=== PATIENT | male | born 1950 | race Caucasian/White ===

== ENCOUNTER 2019-05-26 13:07 | Inpatient (IN) | payer OTHER ==
[~2019-05-26] VITALS: Ht 175.3 cm; Wt 48.7 kg
[2019-05-26 13:08] VITALS: BP 119/77
--- NOTE | 2019-05-26 13:46 | NUR ---
PT UNABLE TO RECALL HIS ADDRESS, FAMILY MEMBER ESTEBAN'S NUMBER FROM PT CELL PHONE OBTAINED AND CALLED. ESTEBAN IS PT'S SON, HE REPORTS THAT PT HAS BEEN LOST IN HIS CAR X2 IN THE PAST. HE REPRTS PT HAS HAD DECLINING MENTAL FACILITIES. SON REPORT HE TALKED TO FATHER YESTERDAY AND HE DID NOT KNOW WHO THE SON WAS OR THAT HE EVEN HAD A SON. SON IS OUT OF TOWN AND WILL TRY TO CONTACT SOMEONE LOCAL TO SEE PT. ESTEBAN REPORTS THAT PT DOES NOT REMEMBER ANYBODY ANYMORE.
[2019-05-26 14:20] LABS: HEMOGLOBIN 13.8 gm/dL (14.0-18.0); MCHC 34.5 g/dL (28.0-37.0); MCV 92.9 fL (80.0-100.0); MPV 6.9 fl. (7.2-11.1); NUCLEATED RBCS 0 /100WBC; PLATELET COUNT* 286 thou/uL (150-400); RBC 4.31 mil/uL (4.50-6.00); RDW-CV 13.4 % (10.5-14.5); WBC 9.1 thou/uL (4.0-11.0)
[2019-05-26 14:32] LABS: ALBUMIN 3.6 g/dL (3.4-5.0); CREATININE 0.7 mg/dL (0.6-1.3); POTASSIUM 4.2 mmol/L (3.5-5.1); TOTAL BILIRUBIN 0.5 mg/dL (<0.1-1.0); TOTAL PROTEIN 6.2 g/dL (6.4-8.2)
[2019-05-26 15:03] LABS: ABSOLUTE LYMPHOCYTES 0.5 thou/uL (0.8-5.3); ABSOLUTE MONOCYTES 0.3 thou/uL (0.0-1.2); ABSOLUTE NEUTROPHILS 8.3 thou/uL (1.6-8.1); PLATELET ESTIMATE ADEQUATE
--- NOTE | 2019-05-26 15:29 | NUR ---
PT HAS EATEN 2 SANDWICHES AND HAD TO JUICES. PT AMBULATED TO RESTROOM WITH ASSISTANCE C/O LEFT HIP PAIN.
[2019-05-26 17:32] VITALS: BP 118/68
[2019-05-26 20:00] VITALS: BP 157/88
[2019-05-26 23:59] VITALS: BP 145/70
[2019-05-27 03:45] VITALS: BP 104/65
[2019-05-27 04:28] LABS: ABSOLUTE LYMPHOCYTES 0.6 thou/uL (0.8-5.3); ABSOLUTE MONOCYTES 0.8 thou/uL (0.0-1.2); ABSOLUTE NEUTROPHILS 5.9 thou/uL (1.6-8.1); BASOPHILS 0.3 %; EOSINOPHILS 0.3 %; HEMATOCRIT 38.8 % (42.0-52.0); HEMOGLOBIN 13.5 gm/dL (14.0-18.0); LYMPHOCYTES 8.2 %; MCH 32.3 pg (26.0-34.0); MCHC 34.8 g/dL (28.0-37.0); MONOCYTES 10.9 %; MPV 7.9 fl. (7.2-11.1); NUCLEATED RBCS 0 /100WBC; PLATELET COUNT* 290 thou/uL (150-400); POLYS 80.3 %; RBC 4.18 mil/uL (4.50-6.00); RDW-CV 13.2 % (10.5-14.5); WBC 7.3 thou/uL (4.0-11.0)
[2019-05-27 04:54] LABS: ALBUMIN 3.3 g/dL (3.4-5.0); CALCIUM 7.9 mg/dL (8.5-10.1); CREATININE 0.7 mg/dL (0.6-1.3); MAGNESIUM 2.1 mg/dL (1.8-2.4); POTASSIUM 4.4 mmol/L (3.5-5.1); TOTAL BILIRUBIN 0.5 mg/dL (<0.1-1.0); TOTAL PROTEIN 5.6 g/dL (6.4-8.2)
[2019-05-27 07:51] VITALS: BP 124/78
--- NOTE | 2019-05-27 10:45 | NUR ---
Nutrition: Pt admitted with AMS. Assesssed for low BMI.Wt: 118#. Regular diet ordered. Good appetite. Albumin 3.3. RD will order Ensure for added kcals. Consider Mild risk.
[2019-05-27 12:40] VITALS: BP 130/82
--- NOTE | 2019-05-27 15:46 | NUR ---
PT TRANSFERED TO MED/SURG AT 1500. PT A&OxSELF. NO IV, DR HARPER. PT SETTLED INTO ROOM. REPORT GIVEN TO SANDRA.
--- NOTE | 2019-05-27 16:35 | NUR ---
CM spoke with Pt's son via phone. Pt normally lives here in alone. Son lives in [place] and has attempted to try and get Pt to move to [place], but Pt has always declined. Per son, he has noticed a decline in Pt over the past 5 years, but states that this past year, Pt has gotten worse. Son spoke to Pt about a month ago and reports that Pt was A&O. When son spoke to Pt, the day before yesterday, Pt did not know who son was and son had to convince him who is was, at which point Pt stated "son, I probably should have moved to [place] with with." Son's mother and stepfather (Pt's 1st ex ), live in the area and plan to help locate dpoa paperwork. Per Pt's 2nd , she was Pt's dpoa until they got , then he changed it, 2nd believes it was changed to [place]/son. CM also encouraged son to contact the silverware buffer that Pt used for the divorce, to contact 2nd if necessary. Son states that Pt has had 5-6 episodes of confusion where son has been called that Pt was found in [place], [place], Pt had driven himself there. If DPOA paperwork cannot be located, may have to initiate guardianship, tho I am unsure if the courts are open at this time. Pt is normally independent. No DME. No hx of HH or SNF, per son, Pt has not been to a dr in over [address] Following Blank Short (1st ex ) [phone] and Steven Short (son's stepfather) [phone]
--- NOTE | 2019-05-27 18:11 | NUR ---
ASSUMED CARE OF PATIENT AT 1530 WHEN TRANSFERING FROM TELEMETRY UNIT. PATIENT SETTLED TO ROOM. PATIENT IS CONFUSED. PATIENT HAS BEEN UNCOOPERATIVE AND WANTING TO LEAVE. PATIENT HAS NOT BEEN REDIRECTABLE. SITTER ORDER OBTAINED FOR PATIENT SAFETY. PATIENT WILL NOT REMAIN IN BED OR CHAIR AND IS UNSTEADY ON FEET. PATIENT HAS GOOD APPETITE.
[2019-05-27 19:10] VITALS: BP 114/72
[2019-05-28 00:13] LABS: URINE BILIRUBIN NEGATIVE (Negative); URINE BLOOD NEGATIVE (Negative); URINE CLARITY CLEAR; URINE COLOR YELLOW; URINE GLUCOSE-RANDOM NEGATIVE (Negative); URINE KETONES NEGATIVE (Negative); URINE LEUKOCYTES-REFLEX NEGATIVE (Negative); URINE NITRITE-REFLEX NEGATIVE (Negative); URINE PROTEIN NEGATIVE (Negative); URINE SPECIFIC GRAVITY 1.015 (1.005-1.030)
[2019-05-28 00:16] LABS: AMP/METHAMP Negative (Negative); BARBITURATES Negative (Negative); BENZODIAZEPINES Negative (Negative); COCAINE Negative (Negative); METHADONE Negative (Negative); OPIATES Negative (Negative); PCP Negative (Negative); THC POSITIVE (Negative)
[2019-05-28 04:34] LABS: HEMATOCRIT 37.2 % (42.0-52.0); HEMOGLOBIN 12.9 gm/dL (14.0-18.0); MCH 32.4 pg (26.0-34.0); MCHC 34.8 g/dL (28.0-37.0); MCV 93.2 fL (80.0-100.0); RBC 3.99 mil/uL (4.50-6.00); RDW-CV 13.3 % (10.5-14.5); WBC 5.1 thou/uL (4.0-11.0)
[2019-05-28 05:02] LABS: ALBUMIN 2.9 g/dL (3.4-5.0); CALCIUM 7.9 mg/dL (8.5-10.1); CREATININE 0.6 mg/dL (0.6-1.3); PHOSPHORUS* 3.4 mg/dL (2.5-4.9); POTASSIUM 3.6 mmol/L (3.5-5.1)
--- NOTE | 2019-05-28 05:35 | NUR ---
PT ABLE TO VOICE HIS NAME. OTHERWISE DISORIENTED. CONFUSION. COMBATIVE. RUDE. AGGRESSIVE. PT HAD A SHOT OF HALDOL IM BEGINNING OF SHIFT. PT WAS COMBATIVE AND AGRRESSIVE SEVERAL TIME. UA COLLECTED. PT CHEWED MEDS LAST NIGHT. 1:[address] NO IV ACCESS AT THIS TIME. PT VOIDS IN THE BATHROOM, 2 PERSONS ASSIST. FALL PRECAUTION IN PLACE. CALL LIGHT WITHIN REACH. HOURLY ROUNDINGS MADE. WILL CONTINUE TO MONITOR.
[2019-05-28 08:00] VITALS: BP 115/71
--- NOTE | 2019-05-28 17:28 | NUR ---
PT AWAKE, ORIENTED TO PERSON. 1:1 SITTER AT BEDSIDE THIS SHIFT. FALL PRECAUTIONS IN PLACE. PT IMPULSIVE AND OCCASSIONALLY ATTEMPTS TO GET UP. PT REMAINS CONTINENT OF B/B. BRUISE TO L HIP PRESENT PRIOR TO THIS SHIFT. PT HAS NO IV ACCESS, BUT NONE INDICATED AT THIS TIME. PT ABLE TO TAKE MEDICATIONS WHOLE, NO DIFFICULTY. CASE MGMNT INVOLVED AND LOOKING FOR PLACEMENT FOR DC. PT ATE MEALS AND SNACKS, NO DIFFICULTY. APPETITE GOOD. PT DOES REQUIRE SOME ASSISTANCE WITH SET UP AT MEAL TIMES. PT RESTS IN BED WITH CALL LIGHT IN REACH. WILL CONTINUE TO MONITOR.
--- NOTE | 2019-05-28 19:40 | NUR ---
PT TRANSFERRED TO ROOM 210 BY BED ACCOMPANIED BY NURSING STAFF WITH BELONGINGS AND CHART. PT DENIES PAIN OR PROBLEMS AT THIS TIME. SITTER IN ROOM. PT CALM AND COOPERATIVE AT THIS TIME. BED ALARM ON FOR SAFETY, CALL LITE IN EASY REACH.
[2019-05-28 20:10] VITALS: BP 107/62
--- NOTE | 2019-05-29 05:48 | NUR ---
PT SLEPT ON AND OFF OVERNIGHT, SITTER AT BEDSIDE. PT AO TO SELF, BECOMES CONFUSED AND TRIES TO GET OOB, IMPULSIVE. PT CALMS EASILY AND REDIRECTS BACK TO BED PER SITTER REPORT. TAKES PILLS WHOLE WITH WATER WITHOUT DIFFICULTY. DENIES PAIN OR PROBLEMS. NO IV ACCESS. NO LABS THIS MORNING. VSS. NOT ON TELE MONITOR. UP WITH SBA TO BATHROOM TO VOID OVERNIGHT. CM ASSISTING WITH DC PLAN.
[2019-05-29 09:00] VITALS: BP 116/77
[2019-05-29 15:44] VITALS: BP 144/88
--- NOTE | 2019-05-29 17:14 | NUR ---
PATIENT IMPULSIVE AND VERBAL AT TIMES W/ STAFF. BED ALARM ON AND FUNCTIONING APPROP THRU SHIFT. PATIENT EATING WELL, FEEDING SELF. SEE MAR. CALL LIGHT IN REACH. CURRENTLY EATING SUPPER MEAL IN BED W/ TV ON. HRLY ROUNDS DONE. ~TJRN
[2019-05-29 20:00] VITALS: BP 109/71
[2019-05-30] VITALS: BP 124/69
[2019-05-30 04:17] LABS: CALCIUM 8.1 mg/dL (8.5-10.1); CREATININE 0.6 mg/dL (0.6-1.3); MAGNESIUM 2.1 mg/dL (1.8-2.4); POTASSIUM 3.9 mmol/L (3.5-5.1)
--- NOTE | 2019-05-30 06:01 | NUR ---
ASSUMED CARE OF PT AFTER REPORT AT 1930. PT IS CONFUSED, RESTLESS & IMPULSIVE. PT ON MEDSURG STATUS. PT UP WITH 1 ASSIST TO RESTROOM. PT DENIES ANY PAIN OR DISCOMFORT. PT WITH SITTER FOR SAFETY. PER SENIOR CENTER MANAGER, PT DID NOT SLEEP ALL NIGHT. KEEPS MUMBLING AND TRYING TO GET OUT OF BED TO GO HOME. FALL PRECAUTIONS IN PLACE.
--- NOTE | 2019-05-30 15:55 | NUR ---
SW called pt son to follow up on whether or not pt son was able to locate DPOA. Pt son said that he did not have any luck finding the document and that he would suspect beginning guardianship process will be necessary. SW attempted to contact court system (that is not open to public at this time, only through calls, emails, mail). SW had to leave a voicemail message and requested for someone to call SW back to discuss beginning guardianship process. SOPHIE called pt son again and asked if SW could have pt second phone number to call but pt son did not have the number at the moment but said that he had call her and that she did not have any paperwork or anything to do with pt after divorce and that the drafting instructor handled everything to which SW asked if pt son could find out auto vinyl top installer office/number etc to lead us to possibility that pt drafting instructor have the DPOA document available. Pt son did not know this information. SW to contact Risk and/or other sources to be able to determine next steps in working towards guardianship/dc planning.
[2019-05-30 16:21] VITALS: BP 124/71
--- NOTE | 2019-05-30 18:12 | NUR ---
REMAINS ALERT BUT DISORIENTED. RESPIRATIONS EVEN AND UNLABORED ON ROOM AIR. DENIES PAIN. 1:1 SITTER REMAINS AT BEDSIDE. NO MEDS GIVEN THIS SHIFT D/T DISPLAYED LETHARGY UPON ADMINISTRATION. BED ALARM SET ON EXITING MODE FOR SAFETY. CALL STOVER AND PERSONAL ITEMS WITHIN REACH. NSG WILL CONTINUE TO ASSESS.
[2019-05-30 20:00] VITALS: BP 117/75
[2019-05-31 04:12] VITALS: BP 128/84
--- NOTE | 2019-05-31 04:33 | NUR ---
ASSUMED PATIENT CARE AT 1900. ASSESSMENT COMPLETED CHARTED. PATIENT IS MED-SURG. HOURLY ROUNDING IN PLACE FOR PATIENT SAFETY. CLWR.
[2019-05-31 10:11] VITALS: BP 109/72
[2019-05-31 11:11] LABS: APTT 27.9 Seconds (25.0-31.3); INR 1.1; PROTIME 11.4 Seconds (9.20-11.50)
[2019-05-31 14:37] LABS: CSF CLARITY CLEAR; CSF COLOR COLORLESS; VOLUME 11.5 ml
[2019-05-31 14:50] LABS: CSF RBC 0 /mm3; CSF WBC 1 /mm3 (0-10)
[2019-05-31 15:01] LABS: CSF GLUCOSE 73 mg/dl (40-70); CSF PROTEIN 36.6 mg/dl (15-45)
--- NOTE | 2019-05-31 15:14 | NUR ---
SW discussed situation of possible guardianship needed with , Nitin, and confirmed with legal that as long as the son is okay with placement, this can be approval for pt to be able to dc to accepting facility even though there is not copy of DPOA in hand. SW faxed referral to [facility] who does have a male memory care bed available and are reviewing possibility of being able to accept pt.
[2019-05-31 16:07] VITALS: BP 105/65
--- NOTE | 2019-05-31 17:31 | NUR ---
PT A&Ox SELF. VITALS STABLE. IV PATENT. EATING 100% OF MEALS. SITTER IN PLACE FOR PT BEING IMPULSIVE. DENIED PAIN. UP 1-2. CALL LIGHT WITHIN REACH. WILL CONTINUE TO MONTIOR.
[2019-05-31 20:00] VITALS: BP 106/73
[2019-06-01] VITALS: BP 106/70
--- NOTE | 2019-06-01 05:01 | NUR ---
ASSUMED PT CARE AT APPROX 1930. PT IS AWAKE, ORIENTED TO SELF ONLY, AND IS IMPULSIVE AND TRIED TO GET OUT OF BED MULTIPLE TIMES. 1:[address] ASSESSMENT DONE AND CHARTED. NO ACUTE CHANGES OVERNIGHT. CALL LIGHT WITHIN REACH. HIGH FALL PRECAUTINS IN PLACE.
[2019-06-01 07:30] VITALS: BP 126/79
[2019-06-01] MEDS ORDERED: NAMENDA 10 MG T10 MG PO (08:44)
[2019-06-01] MEDS ORDERED: RISPERIDONE 1 MG1 MG PO (08:44)
[2019-06-01] MEDS ORDERED: ARICEPT10 M1 PO (08:44)
[2019-06-01] MEDS ORDERED: FOLIC ACID1 MG PO (08:44)
[2019-06-01] MEDS ORDERED: THERA M PLUS T1 EAC2 PO (08:44)
[2019-06-01 09:36] VITALS: BP 126/79
[2019-06-01 12:00] VITALS: BP 108/66
--- NOTE | 2019-06-01 16:34 | NUR ---
SOPHIE followed up with Tana in admissions at [facility] to discuss pt ready to dc and provided updated progress notes and faxed therapy notes once they were available. Araceli at [facility] explained that facility would need documentation that pt is sitter-free, possibly unable to provide risperdol for dementia...would need a different diagnosis that would qualify this pt needing this med, and if [employer] does not provide auth for SNF, dc to their LTC memory care unit will be pending son ability to find and provide copy of DPOA and all of needed documentation to begin medicaid pending application process. SOPHIE to continue to follow up with facility for placement. SOPHIE informed pt nurse and Dr Franco of barriers to discharge.
--- NOTE | 2019-06-01 16:38 | NUR ---
PATIENT 1:1 UNTIL 1300 AND THEN SITTER DC'D. PATIENT IMPULSIVE AT TIMES BUT DID NOT TRY TO GET OUT OF BED. BED ALARM REMAINS IN PLACE. IV SL. UP TO CHAIR FOR LUNCH. PT/OT WORKED WITH PATIENT TODAY. AWAITING PLACEMENT.
[2019-06-01 20:00] VITALS: BP 99/66
[2019-06-01 23:56] VITALS: BP 108/65
--- NOTE | 2019-06-02 04:14 | NUR ---
ASSUMED PT CARE AT APPROX 1930. PT IS AWAKE, ORIENTED TO SELF ONLY, CONFUSED AND IMPULSIVE, BUT IS EASILY REDIRECTABLE. ASSESSMENT DONE AND CHARTED. HIGH FALL PRECAUTIONS IN PLACE. CALL LIGHT WITHIN REACH. PT IS CLOSELY MONITORED.
[2019-06-02 08:00] VITALS: BP 123/83
--- NOTE | 2019-06-02 11:50 | NUR ---
SOPHIE received call from Tana in admissions at [facility] who informed that the facility wants pt to be off of sitter 1:1 for 2 to 3 days to determine how pt reacts. [facility] will still submit for auth from [employer] that may take a couple of days as well, but if not authorized, pt will need to have copy of DPOA in order for [facility] to accept LTC and they will need to begin process of applying for Medicaid. This will extend pt dc due to all of the requirements and documents, etc needed to apply for Medicaid. [facility] can also be involved to assist with process. SOPHIE discussed with dc senior program planner to fax more referrals to other facilities that have LTC memory care beds available to have back up options if [facility] ultimately unable to accept pt after all. SOPHIE/CM to continue to follow to assist with safe dc planning/placement.
--- NOTE | 2019-06-02 12:43 | NUR ---
FAXED REFERRALS TO [facility]. WILL CONFIRM IF THEY RECEIVED AND BED AVAILABILITY IN THEIR LONG TERM, MEMORY CARE AND SNF CARE FACILITY. WILL CONTINUE TO LOOK AT OTHER FACILITIES ALSO. [facility] [phone]; [phone] [facility] [phone]; [phone]
--- NOTE | 2019-06-02 14:41 | NUR ---
ASSUMED CARE OF PATIENT THIS AM AT 0730. PATIENT IS ALERT AND CONFUSED THIS AM. HE WAS UNABLE TO TELL STAFF HIS NAME AND BIRTHDATE. PATIENT IS UP WITH STANDBY ASSIST. HE CONTINUES TO GET UP IMPULSIVELY. HE HAS BEEN REMINDED TO NOT BE UP WITHOUT ASSISTANCE. BED AND CHAIR ALARM REMAIN ON AT ALL TIMES. PT OT AND SPEECH IN TO WORK WITH THE PATIENT TODAY. PATIENT IS EATING 100% OF MEALS. HE HAD TO BE FED BREAKFAST BUT WAS ABLE TO FEED HIMSELF LUNCH. PATIENT WAS ALSO ABLE TO RECITE HIS NAME THIS AFTERNOON. HE REMAINS UP IN THE CHAIR AT THIS TIME. WILL CONTINUE PLAN OF CARE.
[2019-06-02 15:52] VITALS: BP 128/81
--- NOTE | 2019-06-02 17:00 | NUR ---
FAXED REFERRAL JAYMIE/LIAISON FOR THE [facility]. CONFIRMED THAT SHE RECEIVED. SHE WILL CONTACT INP TOMORROW AFTER HER TEAM REVIEWS. CONFIRMED WITH SAM/CHASIDY AT [facility] THAT PATIENT DID NOT HAVE A SITTER IN THE PAST 24 HOURS. UPDATED CLINICALS, NURSING NOTES AND THERAPY NOTES FAXED. CALLED AND LEFT VOICE MAIL MESSAGES WITH JUANCHO/MALISSA AT [facility] AND NO RESPONSE YET. [facility] TO FOLLOW. [facility] [phone]; [phone] J[facility]MIE/LIAISON [facility] [phone]; [phone] SAM/ADMISSIONS [facility] [phone]; [phone] JUANCHO/INTAKE
[2019-06-02 20:00] VITALS: BP 102/57
[2019-06-03 04:00] VITALS: BP 128/83
--- NOTE | 2019-06-03 04:27 | NUR ---
ASSUMED PT CARE AT APPROX 1930. PT IS AWAKE, ORIENTED TO SELF.MOSTLY CONFUSED, SOMETIMES IMPULSIVE, BUT IS REDIRECTABLE. ASSESSMENT DONE AND CHARTED. HIGH FALL PRECAUTIONS IN PLACE. CALL LIGHT WITHIN REACH. PT IS CLOSELY MONITORED.
[2019-06-03 08:00] VITALS: BP 119/69
--- NOTE | 2019-06-03 16:02 | NUR ---
ASSUMED CARE OF PT APPROX 0730. REASSESSMENT COMPLETED CHARTED. MEDICATIONS GIVEN CHARTED. PT WORKED WITH THERAPY THIS AFTERNOON. PT SHOWERED WITH THERAPY. PT UP TO BEDSIDE CHAIR THIS AFTERNOON. PT IS IMPULSIVE AT TIMES, PT STATES THEY HAVE TO LEAVE AND GO HOME. PT REORIENTATED. PT ALERT TO SELF. SAFTEY PRECAUTIONS UTILIZED, HOURLY ROUNDING. CALL LIGHT WITHIN REACH.
--- NOTE | 2019-06-03 16:59 | NUR ---
SW received call from pt dtr in law Rachel [phone] to discuss issues in finding placement for pt. Pt dtr in law reiterated that pt son unable to find DPOA but that Rachel plans to call pt second exwife to try to determine criminal attorney who might have name of pt sports attorney who may or may not have a copy of the supposed DPOA document. Pt dtr in law and son are not positive that one exists even though they know that pt told them pt son was DPOA, pt never provided pt son with the DPOA paperwork. SW explained that pt is dependent on DPOA and on then DPOA assisting with applying for Medicaid. Pt dtr in law said that pt is retired from [employer] and has pension, 401k and might not qualify for Medicaid. Pt dtr in law unsure of pt finances/ability to pay for LTC up front and wouldn't have access to bank account, etc at this point to private pay for pt to LTC. Geographical barrier and barrier of inability to travel during covid19 outbreak is another consideration. SW revisiting need for guardianship after all and need to apply for emergency guardianship and called Risk dept for direction, also SW to call court system to see if they could assist in any way. Pt dtr in law suggested [facility] and said that the divorce proceedings took place in [place], [place] where if anything would be public record, could be a lead for determining if there really is a pt field advisor or anything that could assist in determining what else may help in the placement of pt. SOPHIE/ELIZABETH to continue to follow.
--- NOTE | 2019-06-03 17:10 | NUR ---
ASSUMES CARE OF PATIENT AT THIS TIME. REPORT RECEIVED FROM JOY.
[2019-06-03 20:00] VITALS: BP 134/85
[2019-06-03 23:57] VITALS: BP 129/84
[2019-06-04 08:00] VITALS: BP 127/85
[2019-06-04 16:26] VITALS: BP 115/90
--- NOTE | 2019-06-04 17:34 | NUR ---
PT IS OLNY ORIENTED TO SELF. STILL AWAITING PLACEMENT. PT DID HAVE EPISODE OF AGGRESSION. ORAL MEDICATIONS GIVEN. PT IS UNSTEADY AND IMPULSIVE. FALL ALARMS IN PLACE. VSS. WCTM CLOSELY.
[2019-06-04 20:00] VITALS: BP 135/80
--- NOTE | 2019-06-05 00:35 | NUR ---
ASSUMED CARE FROM DAY SHIFT PT SITTING IN CHAIR ATTEMTPING TO GET OUT , GAIT VERY UNSTEADY , AND PT BECOMING AGITATED. PT WAS ABLE TO TAKE PO MEDICATION WITH PUDDING. PT CONINTUE TO YELL OUT AND CLIMB OUT OF CHAIR . CALLED TO TAB. MEDICATION GIVEN. SELF WENT IN ROOM AND SIT TO KEEP PT CALM AND TO ASSIST WITH SATYING IN CHAIR AFTER REFUSING TO GO TO BED . MD CALLED FOR A SITTER DUE PT CLIMBING OUT OF CHAIR AND HIS IMPULSIVE BEHAVIOR. SITTER AT BEDSIDE BY [phone].
--- NOTE | 2019-06-05 03:37 | NUR ---
PT QUIET AND SLEEPING BED ALARM ON RESP EASY COLOR PINK , WILL CONITNUE WITH CURRENT PLAN OF CARE, AND WILL REPORT ABNORMAL FINDINGS OR CHANGES.
[2019-06-05 05:09] LABS: HEMATOCRIT 36.5 % (42.0-52.0); HEMOGLOBIN 12.5 gm/dL (14.0-18.0); MCH 31.9 pg (26.0-34.0); MCHC 34.3 g/dL (28.0-37.0); MPV 6.9 fl. (7.2-11.1); RBC 3.92 mil/uL (4.50-6.00); RDW-CV 13.3 % (10.5-14.5); WBC 5.3 thou/uL (4.0-11.0)
[2019-06-05 05:22] LABS: ALBUMIN 2.6 g/dL (3.4-5.0); CALCIUM 7.7 mg/dL (8.5-10.1); CREATININE 0.5 mg/dL (0.6-1.3); POTASSIUM 3.8 mmol/L (3.5-5.1); TOTAL BILIRUBIN 0.4 mg/dL (<0.1-1.0); TOTAL PROTEIN 5.5 g/dL (6.4-8.2)
[2019-06-05 08:00] VITALS: BP 107/68
--- NOTE | 2019-06-05 14:15 | NUR ---
ASSUMED PT CARE REPORT RECEIVED FROM NURSE PT IS ALERT AWAKE ORIENTED TO SELF ONLY. ON RA. CONFUSED AND DOES NOT MAKE SENSE IN HIS WORDS. SITTER 1:1 IN ROOM. PT LOOK CALM. AM MEDICINE GIVEN TO PATIENT. SITTER REMOVED AT 10:00 AM. BED ALARM ON. PT CAN FEED SELF. VSS. LEFT FOREARM IS PATENT. MEDSURG STATUS. CALL LIGHT AT REACH. WILL CONTINUE TO MONITOR PT
--- NOTE | 2019-06-05 14:59 | NUR ---
fall precaution in place. pt remains free of fall. bed alarm on,.
[2019-06-05 16:38] VITALS: BP 110/75
--- NOTE | 2019-06-05 17:14 | NUR ---
PT BECAME AGITATED AGAIN THIS AFTERNOON. SITTER 1:1 RESTARTED AT 1645. HALDOL GIVEN FOR AGITATION. WILL CONTINUE TO MONITOR
[2019-06-05 20:58] VITALS: BP 117/75
[2019-06-06 03:52] VITALS: BP 135/91
[2019-06-06 04:28] LABS: HEMATOCRIT 39.5 % (42.0-52.0); HEMOGLOBIN 13.3 gm/dL (14.0-18.0); MCH 31.1 pg (26.0-34.0); MCHC 33.6 g/dL (28.0-37.0); MCV 92.7 fL (80.0-100.0); MPV 6.7 fl. (7.2-11.1); RBC 4.26 mil/uL (4.50-6.00); RDW-CV 12.8 % (10.5-14.5); WBC 5.1 thou/uL (4.0-11.0)
[2019-06-06 05:04] LABS: CALCIUM 7.8 mg/dL (8.5-10.1); CREATININE 0.5 mg/dL (0.6-1.3); POTASSIUM 3.9 mmol/L (3.5-5.1)
--- NOTE | 2019-06-06 06:00 | NUR ---
PATIENT DID GET SOME SLEEP THIS SHIFT. HE IS IMPULSIVE AND WILL GET UP ON OWN. HE DID NOT SHOW ANY COMBATIVE BEHAVIOR JUST SOME VERBAL ABUSE TO STAFF ONCE. HE IS ABLE TO GET TO COMMODE WITH ASSISTANCE AND IS ALERT ENOUGH TO KNOW WHEN HE NEEDS TO USE THE RESTROOM. HE WAS ANXIOUS AND REMOVED HIS IV ATTEMPTED TO GET UP SEVERAL TIMES AND LEAVE. SITTER PRESENT. PLAN IS TO MOVE TO MEMORY CARE FACILITY. WILL CONTINUE TO MONITOR.
[2019-06-06 08:00] VITALS: BP 135/92
--- NOTE | 2019-06-06 13:08 | NUR ---
ASSUMED PT CARE REPORT RECEIVED FROM NURSE. PT IS ALERT AWAKE ORIENTED X1 TO SELF. ON RA. VSS. SITTER 1:1. TELEPSYCH ORDERED. TELEPSYCH EVALUATED PATIENT AT BEDSIDE. RECOMMENDATIN FAXED. WILL COMMUNICATE NEW RECOMMENDATIONS TO HOSPITALIST. PT FREE FROM FALL. AM MEDICINE ADMINISTERED. WILL CONTINUE TO MONITOR
--- NOTE | 2019-06-06 14:40 | NUR ---
Pt dc continues to be pending due to pt requiring sitter on and off over the weekend. Also, barrier to dc of the continued missing DPOA, SW contacted Nitin Thompson, and left a message to follow up again about the need for emergency guardianship since earlier on in the pt hospitalization, the word of stating pt son was DPOA was thought to suffice, now the possible facilities to accept pt are attesting that unless a document is actually present, they will not actually be able to accept pt or begin any financial discussion or a Medicaid application. SW/CM will update facilities and provide the Tele psych eval from today as needed. SW to continue to follow to assist with safe dc planning and placement shania.
[2019-06-06 16:00] VITALS: BP 103/66
--- NOTE | 2019-06-06 18:53 | NUR ---
psych recommendation placed in chart.
[2019-06-06 21:20] VITALS: BP 107/72
--- NOTE | 2019-06-07 04:16 | NUR ---
ASSUMED CARE OF PT 06/06/19 AT APPROX 1930, PT AWAKE, ALERT, ORIENTED TO SELF, 1:1 SITTER WITH PATIENT, VSS, PT ON ROOM AIR, FLUID RESTRICTION MAINTAINED. ASSESSMENTS AND HOURLY ROUNDINGS COMPLETED, WILL CONTINUE TO MONITOR.
[2019-06-07 08:00] VITALS: BP 116/75
[2019-06-07 12:02] VITALS: BP 108/63
--- NOTE | 2019-06-07 13:55 | NUR ---
SW spoke with legal instruments sales representative who will be assisting SW/CM with completing needed paperwork for guardianship process. If uncontested, could do guardianship by phone; if process is contested, then court dates are delayed until July at this point in time due to COVID 19 pandemic. Pt son may be able to be appointed guardian but will need a [place] resident to be registered agent who would not have liability but would be able to accept the papers on behalf of pt son if he were to "be served". SW to follow up with pt son to discuss if this could possibly be pt first exwife since apparently she lives in [place], [place]. Once guardianship established, should be a better chance for placement and SOPHIE will continue to follow to assist with safe dc planning.
--- NOTE | 2019-06-07 15:08 | NUR ---
REMAINS A&O TO SELF WITH CONFUSION. RESPIRATIONS EVEN AND UNLABORED ON ROOM AIR. DENIES PAIN. VSS. CONTINUES ON 2.5L FLUID RESTRICTION. 1:1 SITTER REMAINS AT BEDSIDE. NO IV D/T PT CONTINUES TO SELF REMOVE. UP TO CHAIR WITH ASSISTANCE. CHAIR/BED ALARM SET FOR SAFETY. CALL STOVER AND PERSONAL ITEMS WITHIN REACH. NSG WILL CONTINUE TO ASSESS.
[2019-06-07 20:00] VITALS: BP 157/75
--- NOTE | 2019-06-08 05:26 | NUR ---
PT SLEPT OFF AND ON OVERNIGHT, BECOMES IMPULSIVE AT TIMES GETTING OOB, CONFUSED-ALERT AND ORIENTED TO PERSON ONLY. UP WITH ASSIST TO BSC TO VOID OVERNIGHT. SITTER AT BEDSIDE PROVIDING SAFE TRANSFERS, ASSISTANCE AND REDIRECTION TO KEEP PT SAFE FROM FALLS/INJURY. NO IV ACCESS. VSS. CM FOLLOWING FOR DISCHARGE PLAN. NO LABS TODAY.
[2019-06-08 08:00] VITALS: BP 134/71
--- NOTE | 2019-06-08 09:55 | NUR ---
SW awaiting list of questions and forms to sign as well as present to pt son to sign to continue process of guardianship to move towards the dc goal of placement. SW emailed Araceli Waldron, the district attorney assisting with paperwork to check on status of paperwork. SW/CM to continue to follow to assist with safe dc planning.
--- NOTE | 2019-06-08 13:52 | NUR ---
ASSUMED CARE OF PT APPROX 0730. REASSESMENT COMPLETED CHARTED. MEDICATIONS GIVEN CHARTED. WALKER AND GAIT BELT USED THIS AM TO WALK PT ON UNIT. PT WAS INCREASINGLY AGITATED THIS AM, PRN MEDICATION GIVEN PER EMAR. PT IS LESS AGITATED THIS AFTERNOON. SAFTEY PRECAUTIONS UTILIZED, HOURLY ROUNDING. PT UP IN BEDSIDE CHAIR. SITTER IN ROOM WITH PT.
[2019-06-08 16:39] VITALS: BP 107/65
[2019-06-09 00:16] VITALS: BP 123/79
--- NOTE | 2019-06-09 05:58 | NUR ---
ASSESSMENT COMPLETED CHARTED, MEDICATIONS ADMINISTERED PER MAR. HOURLY ROUNDING COMPLETED FOR SAFETY. CONTINUE PLAN OF CARE. CALL LIGHT WITHIN REACH.
--- NOTE | 2019-06-09 07:10 | NUR ---
CHANGE OF SHIFT, BEDSIDE REPORT GIVEN PATIENT SEEN AT BEDSIDE, IN BED RESTING 1:1 AT BEDSIDE ASSUMED PATIENT CARE
[2019-06-09 08:00] VITALS: BP 110/72
[2019-06-09 09:52] LABS: ALBUMIN 2.9 g/dL (3.4-5.0); CREATININE 0.7 mg/dL (0.6-1.3); PHOSPHORUS* 3.9 mg/dL (2.5-4.9); POTASSIUM 3.2 mmol/L (3.5-5.1)
[2019-06-09 12:45] LABS: MAGNESIUM 2.4 mg/dL (1.8-2.4); PHOSPHORUS* 4.2 mg/dL (2.5-4.9)
--- NOTE | 2019-06-09 15:48 | NUR ---
SOPHIE received documents from Araceli Waldron. SOPHIE emailed proposed guardian the needed documents to complete and sign and will send back to Araceli upon completion. SW to follow up with pt son tomorrow to discuss progress on completing documents. SOPHIE discussed need for guardianship for dc plan even if questioning whether or not to attempt to send to a [facility] psych facility with Dr Tierney. SOPHIE also received not from Araceli Waldron that there will need to be a letter signed by a doctor explaining the need for guardianship, SW has an outline and will discuss with a doctor as needed. SOPHIE to continue to follow to assist with finalizing dc placement shania.
[2019-06-09 16:07] VITALS: BP 105/70
[2019-06-09 20:20] VITALS: BP 112/72
[2019-06-10] VITALS: BP 135/78
--- NOTE | 2019-06-10 05:45 | NUR ---
PATIENT WAS TRYING TO GET UP SEVERAL TIMES STILL VERY CONFUSED AND UNSTEADY ON FEET. SITTER AT BEDSIDE THROUGH NIGHT. WAITING ON PLACEMENT TO A MEMORY UNIT.
[2019-06-10 10:22] LABS: ALBUMIN 3.1 g/dL (3.4-5.0); CREATININE 0.7 mg/dL (0.6-1.3); PHOSPHORUS* 3.1 mg/dL (2.5-4.9); POTASSIUM 3.8 mmol/L (3.5-5.1)
[2019-06-10 12:00] VITALS: BP 151/80
--- NOTE | 2019-06-10 13:59 | NUR ---
FAXED REFERRAL TO [facility]. SPOKE WITH TAD/RN-INTAKE REGARDING PATIENT'S INSURANCE AND GUARDIANSHIP. FAXED TELEMED PSYCHIATRIC CONSULT NOTES TO DR. LISANDRO DALLAS/[employer] INSPECTOR OF [facility] AND TO TAD/RN-INTAKE. DR. DALLAS DENIED PLACEMENT AT THE [facility] UN[facility] AFTER REVIEWING PATIENT'S CHART AND TELEMED NOTES. CASE FORMULATION ON TELEMED NOTES STATING "PATIENT WILL NEED PLACEMENT IN A FDC AND DOES NOT NEED INPATIENT PSYCHIATRIC FACILITY." [employer] NOTIFIED RETAIL SALES CLERK. [facility] [phone]; [phone] TAD/RN-INTAKE
--- NOTE | 2019-06-10 14:41 | NUR ---
SOPHIE called and spoke with pt son Felton to follow up on documents needed from pt son and he confirmed that he received the documents and will try to complete and send back to SW as promptly as possible. SOPHIE spoke with Dr Carey about medical report for guardianship proceedings and attempted to email and then scan and send the outline for the letter needed, pending ability to be able to receive and complete. SW to continue to follow to assist with safe dc planning pending guardianship needs. SOPHIE also discussed with dc development planner to send other referrals as questioning [facility] psych option.
[2019-06-10 16:00] VITALS: BP 125/79
--- NOTE | 2019-06-10 16:57 | NUR ---
PT AWAKE/ALERT, VSS. ORIENTED TO PERSON. PT IS IMPULSIVE AT TIMES AND ATTEMPTS TO GET UP WITH OUT CALLING FOR ASSISTANCE. PT REMAINS ON 2L FLUID RESTRICTION. NO IV ACCESS AT THIS TIME, PROVIDER AWARE. PO POTASSIUM ADMINISTERED PER ELECTROLYTE PROTOCOL FOR K+ 3.2. CASE MANAGEMENT CONTINUES TO WORK ON DC PLAN. IM HALDOL ADMINISTERED THID AFTERNOON ORDERED. PT AMBULATED WITH THERAPY WITH USE OF GAIT BELT AND WALKER. PT NOW RESTS IN BED WITH ALL LIGHT IN REACH. PT REMAINS IN DIRECT VIEW OF STAFF. FALL PRECAUTIONS IN PLACE. WILL CONTINUE TO MONITOR.
[2019-06-11 05:00] VITALS: BP 119/77
--- NOTE | 2019-06-11 05:45 | NUR ---
SLEPT ALL SHIFT. DID GET UP 0530 BED CHANGED, HAD A BM. FLUID RESTRICTION UPHELD. PLAN IS TO D/C TO A MEMORY CARE UNIT ONCE AVAILABLE. WILL CONTINUE TO MONITOR.
[2019-06-11 07:45] VITALS: BP 114/67
[2019-06-11 10:58] LABS: CALCIUM 8.1 mg/dL (8.5-10.1); CREATININE 0.7 mg/dL (0.6-1.3); POTASSIUM 3.9 mmol/L (3.5-5.1)
--- NOTE | 2019-06-11 13:01 | NUR ---
REMAINS ALERT AND ORIENTED TO SELF. RESPIRATIONS EVEN AND UNLABORED ON ROOM AIR. DENIES PAIN. NO IV WITH MD ORDER TO LEAVE OUT. 1:1 SITTER REMAINS AT BEDSIDE. UP WITH WALKER. STEADY GAIT NOTED. TOLERATING REGULAR FOOD WITH GOOD APPETITE. BED AND CHAIR ALARMS SET FOR SAFETY. NSG WILL CONTINUE TO ASSESS.
[2019-06-11 20:35] VITALS: BP 101/72
--- NOTE | 2019-06-12 04:24 | NUR ---
ASSUMED CARE OF PT 06/11/19 AT APPROX 1930. PT AWAKE, ALERT, ORIENTED TO SELF, PT ON ROOM AIR, FLUID RESTRICTION MAINTAINED, VSS. PT HAD NO COMPLAINTS THIS SHIFT. ASSESSMENTS AND HOURLY ROUNDINGS COMPLETED. WILL CONTINUE TO MONITOR.
[2019-06-12 08:00] VITALS: BP 126/84
[2019-06-12 15:50] VITALS: BP 135/80
[2019-06-12 20:00] VITALS: BP 119/86
--- NOTE | 2019-06-13 06:15 | NUR ---
Pt was very agitated at shift change. Haldol was given x1 without relief of symptoms. Pt continued to become progressively more aggressive and attempted twice to hit staff. Dr. Ortiz was paged and haldol timeframe was adjusted and ativan was ordered. Haldol x1 was administered a second time. Relief of symptoms was achieved with second dose. Pt has rested comfortably from that time on with only mild, intermittent agitation. Pt is aox1, M/S status, respirations are even and unlabored on room air.
[2019-06-13 07:12] LABS: HEMATOCRIT 36.9 % (42.0-52.0); HEMOGLOBIN 12.7 gm/dL (14.0-18.0); MCHC 34.4 g/dL (28.0-37.0); MCV 93.1 fL (80.0-100.0); MPV 6.8 fl. (7.2-11.1); RBC 3.97 mil/uL (4.50-6.00); RDW-CV 12.6 % (10.5-14.5); WBC 4.3 thou/uL (4.0-11.0)
[2019-06-13 07:30] VITALS: BP 108/58
[2019-06-13 07:40] LABS: ALBUMIN 2.8 g/dL (3.4-5.0); CALCIUM 7.9 mg/dL (8.5-10.1); CREATININE 0.7 mg/dL (0.6-1.3); MAGNESIUM 2.1 mg/dL (1.8-2.4); POTASSIUM 3.9 mmol/L (3.5-5.1); TOTAL BILIRUBIN 0.3 mg/dL (<0.1-1.0); TOTAL PROTEIN 5.6 g/dL (6.4-8.2)
[2019-06-13 10:13] LABS: BE 4.2 mmol/L (-2 to +3); PCO2 40.2 mmHg (35.0-45.0); pH 7.465 (7.340-7.450)
[2019-06-13 10:14] LABS: PO2 130.2 mmHg (75.0-100.0)
[2019-06-13 16:00] VITALS: BP 108/68
--- NOTE | 2019-06-13 16:34 | NUR ---
SW received response from pt son and received needed signed paperwork from pt son. SOPHIE met with Dr Carey who signed Medical report/letter. SOPHIE sent the above documents to Araceli Waldron and SW will follow up to ensure guardianship now able to be in progress with the court system now that the needed documents are complete. SOPHIE discussed with dc digital media planner to provide updates to facilities for placement. Pt need for sitter continues to be a barrier to discharge and the pending guardianship. SW to continue to follow to assist with safe dc planning and placement as needed.
--- NOTE | 2019-06-13 17:05 | NUR ---
REMAINS SEDATED BUT ALERT AND ORIENTED WHEN PROMPTED. RESPIRATIONS EVEN AND UNLABORED ON O2 AT 2L VIA NASAL CANNULA. NO EPISODES OF APNEA REPORTED OR NOTED. DENIES PAIN. VSS. NO S/SX OF AGRESSIVE/COMBATIVE BEHAVIOR. UPDATED PSYCH MD AND REQUESTED TO SPEAK WITH DR MONTES. DR MONTES'S CELL PHONE PROVIDED. 1:1 SITTER REMAINS AT BEDSIDE. INCONTINENT OF BLADDER THIS SHIFT. CALL STOVER AND PERSONAL ITEMS WITHIN REACH. NSG WILL CONTINUE TO ASSESS.
--- NOTE | 2019-06-14 04:57 | NUR ---
PATIENT HAS SLEPT OFF AND ON DURING THE NIGHT. VSS ON RA. SITTER IN ROOM DURING THE NIGHT. MEDICATIONS GIVEN ORDERED AND CHARTED. PATIENT UP WITH SBA TO THE BATHROOM. HOURLY ROUNDS MADE. WILL CONTINUE WITH PLAN OF CARE AND NURSING TO MONITOR.
[2019-06-14 08:10] VITALS: BP 110/64
--- NOTE | 2019-06-14 10:51 | NUR ---
SOPHIE received, reviewed and signed the petition for appointemnt of guardian and conservator and returned to embedded linux developer Araceli Waldron. Awaiting Stranding Supervisor/court approval/decision and then will be able to provide confirmed guardianship information to potential placement facilities as needed. SOPHIE received information that Dr Carey spoke with psychiatrist at [facility] who provided further medication suggestions and explained pt not accepted to [facility] facility due to insurance limitations and would continue to recommend LTC placement. After guardianship received and pt is sitter free, placement options more likely and SOPHIE/ELIZABETH will continue to follow to assist with safe dc planning/placement as soon as can be arranged.
[2019-06-14 16:00] VITALS: BP 132/72
--- NOTE | 2019-06-14 17:58 | NUR ---
PT AWAKE/ALERT/CONFUSED. 1:1 REMAINS WITH PT DIRECTED. PT UP SBA W/WALKER AND GAIT BELT. PT HAS NO IV ACCESS, PHYSICIAN AWARE. PT INCONTINENT OF B/B AT TIMES. PT CONTINUES TO BE ON 2,000 ML FLUID RESTRICTION. PT RESTS IN ROOM WITH CALL LIGHT IN REACH. WILL CONTINUE TO MONITOR.
[2019-06-14 20:42] VITALS: BP 147/51
--- NOTE | 2019-06-15 06:03 | NUR ---
SITTER AT BEDSIDE. GETS ANXIOUS AND IMPULSIVE AT TIMES. USUALLY TO NEED THE RESTROOM. WAS ASLEEP MOST OF SHIFT. WILL CONTINUE TO MONITOR
[2019-06-15 07:15] VITALS: BP 147/87
--- NOTE | 2019-06-15 10:21 | NUR ---
SW received message from tax associate attorney that the petition for guardianship and conservator has been filed with the dressage judge and that she requested emergency hearing. SW to be updated by tax associate attorney with the dressage judge's response. When guardianship and conservator is finalized and in place, SW will update possible referrals and send more referrals to facilities for placement and will update pt son Felton (who is proposed guardian) as well in the placement process.
--- NOTE | 2019-06-15 16:56 | NUR ---
PT REMAINED ALERT TO SELF. PT UP WALKING IN HALLS WITH ASSISTANCE. SITTER IN ROOM. PT SLEPT MOST OF SHIFT. PT UP TO CHAIR FOR LUNCH. I&O'S RECORDED. TELEPSYCH CONSULT MADE. FALL RISK PRECAUTIONS IN PLACE. HOURLY ROUNDING COMPLETED. WILL CONTINUE TO MONITOR.
--- NOTE | 2019-06-15 18:55 | NUR ---
TELE PSYCH CONSULT COMPLETED. NO INFORMATION FAXED OVER REGARDING PATIENT AT THIS TIME. WILL NOTIFY NIGHT NURSE.
[2019-06-16 04:00] VITALS: BP 117/74
[2019-06-16 04:10] LABS: HEMATOCRIT 35.8 % (42.0-52.0); HEMOGLOBIN 12.3 gm/dL (14.0-18.0); MCH 32.1 pg (26.0-34.0); MCHC 34.4 g/dL (28.0-37.0); MCV 93.3 fL (80.0-100.0); MPV 7.1 fl. (7.2-11.1); RBC 3.83 mil/uL (4.50-6.00); RDW-CV 12.7 % (10.5-14.5); WBC 6.9 thou/uL (4.0-11.0)
[2019-06-16 04:23] LABS: ALBUMIN 2.6 g/dL (3.4-5.0); CALCIUM 7.9 mg/dL (8.5-10.1); CREATININE 0.5 mg/dL (0.6-1.3); MAGNESIUM 2.2 mg/dL (1.8-2.4); POTASSIUM 3.7 mmol/L (3.5-5.1); TOTAL BILIRUBIN 0.4 mg/dL (<0.1-1.0); TOTAL PROTEIN 5.4 g/dL (6.4-8.2)
--- NOTE | 2019-06-16 04:29 | NUR ---
PT SLEPT WELL OVERNIGHT, INCONTINENT URINE. IMPULSIVE AT TIMES WHEN HE NEEDS TO URINATE IT SEEMS. TAKES PILLS CRUSHED IN PUDDING. NO IV ACCESS. CM FOLLOWING FOR DC PLAN. AM LABS DRAWN. SITTER PRESENT.
[2019-06-16 08:00] VITALS: BP 143/89
--- NOTE | 2019-06-16 10:11 | NUR ---
SOPHIE received call from Araceli Waldron, junior net developer, informing that the pt has been appointed an junior net developer Jack Wooten by the courts to visit pt to be schedule to visit pt on Thursday. Then another person to serve pt as well and they are both to call SOPHIE to arrange exact times. Then all involved parties will have court proceeding through laptop with camera and video link like Zoom in lieu of an in person court proceeding that would normally take place (but cannot with the current COVID pandemic and mandate for no public hearings at this time).
--- NOTE | 2019-06-16 10:47 | NUR ---
ASSUMED PT CARE AT 0800, AOX TO SELF. O2 SAT 90'S RA. PT DENIES PAIN. PT HAS A SITTER. HAS BM TODAY. VSS, AM ASSESSMENT CHARTED, MEDS GIVEN PER MAR, CALL LIGHT WITHIN REACH, WILL CONTINUE TO MONITOR.
[2019-06-16 16:00] VITALS: BP 120/89
[2019-06-16 19:45] VITALS: BP 125/78
[2019-06-17] VITALS: BP 120/83
--- NOTE | 2019-06-17 04:03 | NUR ---
PT RESTLESS MOST OF SHIFT PT STARTED THROWING URINAL AND KLEENEX BOX ON THE FLOOR ATTEMPTING TO CLIMB OUT OF BED.HALDOL GIVEN FOR AGITATEION SITTER REMAIN AT BEDSIDE. WILL CONTINUE TO MONTIOR FOR SAFETY AND PLAN OF CARE.
[2019-06-17 07:30] VITALS: BP 114/73
--- NOTE | 2019-06-17 10:12 | NUR ---
SW received call from court system here to be able to serve papers to pt in preparation for court proceeding regarding guardianship that is scheduled for Thursday at 9:30 am. SW to continue to follow to participate in the court hearing via computer and will continue to assist with safe dc planning/placement.
[2019-06-17 16:00] VITALS: BP 128/88
--- NOTE | 2019-06-17 18:45 | NUR ---
ASSUMED PT CARE AT 0800, AOX TO SELF, CONFUSED. HAS A SITTER. AM ASSESSMENT CHARTED, MEDS GIVEN PER, MAR, CALL LIGHT WITHIN REACH, WILL CONTINUE TO MONITOR.
[2019-06-17 20:00] VITALS: BP 105/66
[2019-06-18] VITALS: BP 122/91
--- NOTE | 2019-06-18 06:11 | NUR ---
PATIENT SLEPT MOST OF THE NIGHT. PATIENT HAD SITTER BEGINNING OF SHIFT THEN WENT TO SLEEP AND SITTER WAS ABLE TO BE PULLED OUT OF THERE. BED ALARM REMAINS ON FOR PATIENT SAFETY. WILL CONTINUE TO MONITOR.
[2019-06-18 08:00] VITALS: BP 116/77
--- NOTE | 2019-06-18 11:16 | NUR ---
ASSUMED PT CARE AT 0730, PT WAS STANDING BY SIDE OF BED, REDIRECTED HIM TO BED AND INITIATED FALL PRECAUTIONS. PT IS ALERT AND ONLY ORIENTED TO SELF. PT GOAL IS TO MAINTAIN SAFETY, REMAIN FREE OF FALLS AND AWAIT PLACEMENT. AM ASSESSMENT CHARTED, MEDS PER MAR, FALL PRECAUTIONS IN PLACE, WILL CONTINUE POC.
[2019-06-18 16:00] VITALS: BP 134/87
--- NOTE | 2019-06-18 17:15 | NUR ---
NO ACUTE CHANGES THROUGHOUT SHIFT, PT WORKED W/ PT TODAY AND AMBULATED IN ROOM. PT IS INCONTINENT OF BOWEL AND BLADDER AND IMPULSIVE AT TIMES BUT REMAINED FREE FROM FALLS. GUARDIANSHIP PROCESS UNDERWAY, FALL PRECAUTIONS IN PLACE, WILL CONTINUE POC.
[2019-06-19 05:15] LABS: ALBUMIN 2.7 g/dL (3.4-5.0); CALCIUM 7.7 mg/dL (8.5-10.1); CREATININE 0.5 mg/dL (0.6-1.3); PHOSPHORUS* 3.5 mg/dL (2.5-4.9); POTASSIUM 3.3 mmol/L (3.5-5.1)
--- NOTE | 2019-06-19 06:27 | NUR ---
PATIENT PART OF THE NIGHT. PATIENT REMAINS VERY IMPULSIVE AT TIMES. BED ALARM REMAINS ON FOR PATIENT SAFETY. WILL CONTINUE TO MONITOR.
[2019-06-19 07:45] VITALS: BP 128/82
--- NOTE | 2019-06-19 11:00 | NUR ---
ASSUMED PT CARE AT 0730, PT RESTING IN BED, A&OX0, SATTING 97% ON RA AND DIDN'T VOICE ANY C/O PAIN OR SHORTNESS OF BREATH. PT GOAL IS TO MAINTAIN SAFETY, REMAIN FREE FROM FALLS AND REPLACE K+ PER E'LYTE PROTOCOL SINCE K+ WAS 3.3 THIS AM. AM ASSESSMENT CHARTED, MEDS PER APR, FALL PRECAUTIONS IN PLACE, WILL CONTINUE POC.
[2019-06-19 16:00] VITALS: BP 144/82
--- NOTE | 2019-06-19 18:09 | NUR ---
NO ACUTE CHANGES THROUGHOUT SHIFT. PT WAS GIVEN 2 DOSES OF K+ TODAY PER E'LYTE PROTOCOL AND PT REMAINED FREE FROM FALLS THROUGHOUT SHIFT. PT CONTINUED TO BE INCONTINENT OF BOWEL AND BLADDER TODAY, HAD NO C/O PAIN OR SHORTNESS OF BREATH, MEDS GIVEN PER APR, WILL CONTINUE POC.
[2019-06-19 20:00] VITALS: BP 107/71
[2019-06-20] VITALS: BP 120/75
[2019-06-20 04:00] VITALS: BP 107/73
[2019-06-20 05:25] LABS: ALBUMIN 2.6 g/dL (3.4-5.0); CALCIUM 8.3 mg/dL (8.5-10.1); CREATININE 0.7 mg/dL (0.6-1.3); MAGNESIUM 2.3 mg/dL (1.8-2.4); PHOSPHORUS* 3.8 mg/dL (2.5-4.9); POTASSIUM 4.1 mmol/L (3.5-5.1)
--- NOTE | 2019-06-20 05:59 | NUR ---
PATIENT SLEPT MOST OF THE NIGHT. PATIENT REMAINS INCONTINENT. PATIENT WAS GRABBING AT THIN AIR BEGINNING OF THE SHIFT. MEDS WERE GIVEN ORDERED. WILL CONTINUE TO MONITOR.
[2019-06-20 08:00] VITALS: BP 105/70
--- NOTE | 2019-06-20 13:45 | NUR ---
Pt dc pending guardianship and pending placement. Court hearing tomorrow at 9:30 am to proceed with guardianship process. SW discussed with dc management planner to fax updated info to possible facilities and to more facilities for placement. SW to continue to follow to assist with safe dc planning.
[2019-06-20 15:49] VITALS: BP 116/68
--- NOTE | 2019-06-20 17:40 | NUR ---
ASSUMED PT CARE AT 0800, AOX TO SELF, CONFUSED. IMPULSIVE. UP SBA WITH WALKER. VSS, AM ASSESSMENT CHARTED. GOOD PO INTAKE NOTED. HOURLY ROUNDING, CLOSELY MONITOR.
[2019-06-20 19:50] VITALS: BP 109/74
[2019-06-21] VITALS: BP 122/78
--- NOTE | 2019-06-21 06:35 | NUR ---
PT CONFUSED. FORGETFUL. PT GOT NO SLEEP LAST NIGHT. HALDOL AND ATIVAN GIVEN PER EMAR. SCHLD MEDS GIVEN PER EMAR. NO IV ACCESS. SEVERAL ATTEMPTS MADE TO GET OUT OF BED. FALL PRECAUTION IN PLACE. CALL LIGHT WITHIN REACH. HOURLY ROUNDINGS MADE. WILL CONTINUE TO MONITOR.
[2019-06-21 08:00] VITALS: BP 133/78
--- NOTE | 2019-06-21 14:45 | NUR ---
pt is confused requires reorientation prior shift stated he hasn't slept in 2 days. pt worked with pt this promotion writer and pt got him up to chair ambulated throughout room changed room and sheets pt is now resting in bed
--- NOTE | 2019-06-21 15:28 | NUR ---
Court proceeding via video conference in regards to guardianship held this morning. Craft Worker granted guardianship to pt son Felton for pt care and to be able to discover information about pt finances but not full conservatorship at this time since the finances are unknown. Once SOPHIE receives documents stating the guardianship, SOPHIE and dc materials planner to fax updated information with guardianship to potential facilities for placement.
[2019-06-21 16:00] VITALS: BP 111/72
[2019-06-21 21:45] VITALS: BP 102/72
[2019-06-21 23:58] VITALS: BP 104/69
--- NOTE | 2019-06-22 04:20 | NUR ---
ASSUMED CARE OF PT 06/21/19 AT APPROX 1930. PT ORIENTED TO SELF, VSS, PT SLEEPING - WOKE FOR EVENING MEDS AND THEN BACK TO SLEEP, FLUID RESTRICTION MAINTAINED, ASSESSMENTS AND HOURLY ROUNDINGS COMPLETE. WILL CONTINUE TO MONITOR.
[2019-06-22 07:55] VITALS: BP 106/65
--- NOTE | 2019-06-22 08:48 | NUR ---
FAXED REFERRALS TO [facility] AND [facility]. WILL CONFIRM THEY RECEIVED AND FOLLOW UP REGARDING PLACEMENT AND FINANCIAL SITUATION. DCP TO FAX REFERRALS TO [facility] AND [facility] PENDING DECISIONS ON THE ABOVE FACILITIES. [facility] [place] [phone]; [phone] [facility] - [facility]/ADMISSIONS [phone]; [phone]; MAIN [phone]
[2019-06-22 12:00] VITALS: BP 119/74
--- NOTE | 2019-06-22 16:49 | NUR ---
PT A&OxSELF. NO SITTER. NO IV, DR HARPER. PT WAS NOT ANXIOUS DURING SHIFT. UP WITH 1 STAND BY ASSIST. EATING 90-100% OF MEALS. WAITING PLACEMENT. WORKED WITH OT TODAY. FALL PRECAUTIONS IN PLACE. CALL LIGHT WITHIN REACH. WILL CONTINUE TO MONITOR.
[2019-06-22 19:25] VITALS: BP 99/70
[2019-06-23] VITALS: BP 114/75
--- NOTE | 2019-06-23 04:04 | NUR ---
ASSUMED CARE OF PT 06/22/19 AT APPROX 1930. PT AWAKE, ALERT, ORIENTED TO SELF, PT ON ROOM AIR, VSS, FLUID RESTRICTIONS MAINTAINED, ASSESSMENTS AND HOURLY ROUNDINGS COMPLETE. WILL CONTINUE TO MONITOR.
[2019-06-23 07:47] VITALS: BP 157/92
--- NOTE | 2019-06-23 16:14 | NUR ---
SOPHIE called and spoke with Tana in admissions at [facility] who said that they are still reviewing new information provided and determining if they can accept pt on SNF because now they no longer have a memory care unit bed available. SW to send other referrals and barrier to dc now is that facilities are not willing to accept without assurance of a payer source; pt is not Medicaid pending because belief is that pt has finances but unable to use finances yet to pay for intermodal truck driver care because courts have not granted use of pt money yet. Pt son to find out pt finances and to work with potential facilities' business office to assist with placement acceptance. SW And dc community planner to continue to assist with safe dc planning/placement shania.
[2019-06-23 16:39] VITALS: BP 109/68
--- NOTE | 2019-06-23 17:09 | NUR ---
PT A&OxSELF. PT HAS REFUSED TO EAT TODAY. DID DRINK FLUIDS. HUNCHED OVER IN A SITTING POSITION MOST OF SHIFT. REFUSES TO SIT UP IN BED. WILL MOVE UPON HIS CHOOSING. REFUSED TO TAKE MEDICATIONS. FALL PRECAUTIONS IN PLACE. CALL LIGHT WITHIN REACH. WILL CONTINUE TO MONITOR.
[2019-06-23 20:00] VITALS: BP 114/76
[2019-06-24] VITALS: BP 125/73
--- NOTE | 2019-06-24 05:57 | NUR ---
PATIENT SLEPT MOST OF THE NIGHT. NIGHT MEDS WERE HELD THIS SHIFT DUE TO PATIENT JUST STARING OFF IN SPACE AND NOT REALLY FOLLOWING DIRECTIONS DID NOT WANT PATIENT TO ASPIRATE. PATIENT WAS CLEANED UP NEEDED. BED ALARM REMAINS ON FOR PATIENT SAFETY. WILL CONTINUE TO MONITOR.
[2019-06-24 07:30] VITALS: BP 94/58
--- NOTE | 2019-06-24 12:11 | NUR ---
SW called pt son and dtr in law and discussed placement barriers and discussed need for their assistance in working with possible placement business offices about payment plans. Pt dtr in law provided information about [facility] in [place] and that they would need to do a medical transport for pt when there is accepting facility available. SW encouraged pt son to drive to now to discover pt finances that may assist in securing a placement although pt son would still need to pay up front which they are not able to do according to pt son and dtr in law. SOPHIE spoke with Katy with [facility] who said that they agree to accept pt at [facility] but need payment up front. SW to continue to follow to attempt to find facility willing to accept without payment but this is the dc barrier.
[2019-06-24 16:00] VITALS: BP 91/66
--- NOTE | 2019-06-24 16:20 | NUR ---
ASSUMED CARE OF PATIENT AT APPROX 0730. PATIENT IS ALERT BUT NOT ORIENTED TO PERSON, PLACE OR TIME. ASSESSMENT COMPLETED AND CHARTED. VSS ON ROOM AIR. NO COMPLAINTS VOICED THIS SHIFT. PATIENT HAS FLAT AFFECT AND HAS TROUBLE FOLLOWING COMMANDS APPROPRIATELY. MED SURG STATUS. FALL PRECAUTIONS ARE IN PLACE. CALL LIGHT IS WITHIN REACH. HOURLY ROUNDS MADE. WILL CONTINUE WITH PLAN OF CARE.
--- NOTE | 2019-06-24 16:28 | NUR ---
SOPHIE COREAS INFORMED CM GENDER STUDIES PROFESSOR THAT PATIENT'S SON (ESTEBAN) IS REQUESTING A CALL FROM [facility]. VÍCTOR SPOKE TO SON PER REQUEST. VÍCTOR STATED THAT SON IS POTENTIALLY WANTING TO MOVE THE PATIENT DOWN TO A FACILITY IN [place] WHERE THE SON LIVES. THE FACILITY IS REQUESTING A LIST OF MEDICATIONS AND NOTES FROM PT/OT ABOUT WHAT THE PATIENT CAN AND CANNOT DO. INFORMED VÍCTOR THAT CM WILL FOLLOW UP WITH PATIENT TO OBTAIN FACILITY NAME AND FAX NUMBER IN ORDER TO TO PLACE THE APPROPRIATE REFERRAL AND SEND CLINICALS. SOPHIE TO CONTINUE TO FOLLOW DISCHARGE PLANNING NEEDS.
[2019-06-24 20:52] VITALS: BP 95/70
--- NOTE | 2019-06-25 05:33 | NUR ---
SLEPT THROUGH SHIFT. INCONTINENT OF URINE. ALERT TO SELF ONLY, CONFUSED, FORGETFUL. RECEIVED ALL MEDS SCHEDULED. WILL CONTINUE TO MONITOR.
[2019-06-25 07:40] VITALS: BP 101/68
--- NOTE | 2019-06-25 12:36 | NUR ---
Nutrition: Calorie count ordered for 3 days. It is hung on pt's door. RD will assess calorie count 06/28/19.
[2019-06-25 16:00] VITALS: BP 139/79
--- NOTE | 2019-06-25 16:38 | NUR ---
PATIENT TURNED Q2. PATIENT NOTED TO HAVE PRESSURE SORE TO COCCYX, PHOTO OBTAINED PER PROTOCOL AND WOUND CONSULT PLACED. PATIENT REMAINS CONFUSED, ONLY ALERT TO NAME. PATIENT ABLE TO FOLLOW SOME COMMANDS, PATIENT GIVEN PILLS CRUSHED IN APPLESAUCE AND WAS FED MEALS. CALORIE COUNT STARTED TODAY PER DR. HENNESSY ORDERS. PATIENTS LEFT EYE NOTED TO BE RED AND DRAINING, DR. MONTES NOTIFIED AND AWAITING ANY NEW ORDERS. PATIENT REMAINS MS STATUS.
[2019-06-25 20:25] VITALS: BP 132/78
[2019-06-25 23:50] VITALS: BP 96/62
[2019-06-26 01:12] LABS: INFLUENZA A ANTIGEN Negative (Negative); INFLUENZA B ANTIGEN Negative (Negative)
[2019-06-26 04:42] LABS: URINE BILIRUBIN NEGATIVE (Negative); URINE BLOOD NEGATIVE (Negative); URINE CLARITY CLEAR; URINE COLOR YELLOW; URINE GLUCOSE-RANDOM NEGATIVE (Negative); URINE KETONES NEGATIVE (Negative); URINE LEUKOCYTES-REFLEX NEGATIVE (Negative); URINE NITRITE-REFLEX NEGATIVE (Negative); URINE PROTEIN TRACE (Negative); URINE SPECIFIC GRAVITY 1.025 (1.005-1.030); URINE UROBILINOGEN 0.2 E.U./dl (0.2-1.0)
--- NOTE | 2019-06-26 04:44 | NUR ---
DEVELOPED FEVER OVERNIGHT 101.9 GAVE TYLENOL. BP WAS 96/62 AND NO URINE OUTPUT. BLADDER SCAN SHOWS >[address] HUSSEIN FOR ORDERS FOR LAB WORK, U/A, FLU SWAB. PATIENT LETHARGIC AND NOT RESPONDING TO QUESTIONS. AWAITING LAB RESULTS. STRAIGHT CATH 240 ML OUT AT 0430. WILL CONTINUE TO MONITOR
[2019-06-26 05:06] LABS: HEMATOCRIT 36.2 % (42.0-52.0); HEMOGLOBIN 12.5 gm/dL (14.0-18.0); MCH 31.9 pg (26.0-34.0); MCHC 34.5 g/dL (28.0-37.0); MCV 92.5 fL (80.0-100.0); MPV 7.4 fl. (7.2-11.1); NUCLEATED RBCS 0 /100WBC; PLATELET COUNT* 288 thou/uL (150-400); RBC 3.92 mil/uL (4.50-6.00); RDW-CV 12.9 % (10.5-14.5); WBC 9.5 thou/uL (4.0-11.0)
[2019-06-26 05:21] VITALS: BP 88/66
[2019-06-26 05:25] LABS: ALBUMIN 2.5 g/dL (3.4-5.0); CREATININE 0.6 mg/dL (0.6-1.3); POTASSIUM 3.3 mmol/L (3.5-5.1); TOTAL BILIRUBIN 0.6 mg/dL (<0.1-1.0); TOTAL PROTEIN 5.7 g/dL (6.4-8.2)
[2019-06-26 07:45] VITALS: BP 97/65
[2019-06-26 07:46] LABS: ABSOLUTE LYMPHOCYTES 0.4 thou/uL (0.8-5.3); ABSOLUTE MONOCYTES 0.3 thou/uL (0.0-1.2); ABSOLUTE NEUTROPHILS 8.8 thou/uL (1.6-8.1); PLATELET ESTIMATE ADEQUATE
[2019-06-26 13:10] VITALS: BP 98/64
[2019-06-26 15:45] VITALS: BP 132/83
--- NOTE | 2019-06-26 18:17 | NUR ---
RECEIVED REPORT FROM NATHALIE NEAL. ASSUMED CARE OF PT AROUND 0730. PT SLEEPING UPON INITIAL ASSESSMENT, ABLE TO ROUSE TO VERBAL AND PHYSICAL STIMULI, BUT OTHERWISE REMAINED SLEEPING. ABLE TO EAT PART OF BREAKFAST WITH SIGNIFICANT ASSISTANCE AND ENCOURAGEMENT. PT CONTIUED TO SLEEP AND WAS VERY DIFFICULT TO AROUSE AROUND LUNCH TIME, WOULD NOT AWAKEN FOR LUNCH. HAD NOT VOIDED AND BLADDER SCAN CHARTED. BP'S SOFT. DR MONTES MESSAGED - ORDERS RECEIVED TO HANG MORE IV FLUIDS AND GIVE ROCEPHIN. ORDERS COMPLETED. PT ABLE TO VOID (INCONTINENT) AND HAD SMALL BM. BP'S 120'S/70'S. PT MUCH MORE AWAKE THIS EVENING, TALKING AND ABLE TO EAT DINNER WITH ASSISTANCE. PT TURNED Q2 HRS. DRESSING TO COCCYX CHANGED. PT HAS DENIED PAIN OR DISCOMFORT THIS SHIFT AND HAS HAD NO APPARENT PAIN. CALORIE COUNT RECORDED ON SHEET ON PT'S DOOR. PT CURRENTLY RESTING IN BED. CALL LIGHT IS WITHIN REACH. HOURLY ROUNDING PERFORMED. FALL PRECAUTIONS IN PLACE.
[2019-06-26 19:30] VITALS: BP 111/76
[2019-06-27] VITALS: BP 129/72
--- NOTE | 2019-06-27 04:07 | NUR ---
ASSUMED CARE FROM DAY SHIFT PT AWAKE TALKING BUT CONFUSED, ABLE TO PO PILLS WITH PUDDING AND ATE THE REMINDER WITHOUT DIFF, UP TO BSC WITH ASSIT OF 2 HAD SMALL STOOL. PT RESTING QUIETLY THROUHGOUT HOURLY. WILL COTINUE WITH CURRENT PLAN OF CARE AND WILL REPORT CHANGES.
--- NOTE | 2019-06-27 04:35 | NUR ---
PT BLADDR SCANNED AND SHOWD GREATER THAN 266 , WHEN WENT TO STRAIGHT CATH PT VOIDED 225 PER YRINAL WHEN LAID BETWEEN LEGS. BLADDER SCANNED AGAIN SHOW > 150 ,PT THEN STRAIGHT CATH AND 200 RETURNED PT CALM AND COOPERATIVE.TOLERATED WELL. WILL CONITINUE TO BREANNIOR AND REPORT CHANGES.
[2019-06-27 05:26] LABS: HEMATOCRIT 34.1 % (42.0-52.0); HEMOGLOBIN 11.7 gm/dL (14.0-18.0); MCH 32.1 pg (26.0-34.0); MCHC 34.5 g/dL (28.0-37.0); MCV 93.1 fL (80.0-100.0); MPV 6.9 fl. (7.2-11.1); RBC 3.66 mil/uL (4.50-6.00); RDW-CV 13.1 % (10.5-14.5); WBC 7.2 thou/uL (4.0-11.0)
[2019-06-27 05:40] LABS: CALCIUM 7.8 mg/dL (8.5-10.1); CREATININE 0.5 mg/dL (0.6-1.3); MAGNESIUM 2.1 mg/dL (1.8-2.4); POTASSIUM 4.1 mmol/L (3.5-5.1)
[2019-06-27 08:00] VITALS: BP 154/92
[2019-06-27 16:16] VITALS: BP 139/82
--- NOTE | 2019-06-27 16:45 | NUR ---
SPOKE WITH SON,ESTEBAN, ON PHONE. HE SAID HIS EMAILED LYUDMILA MARKS, THE INFORMATION OF [facility].FACILITY IN [place]. IT IS LOCATED IN [place], [place]. LYUDMILA OFF TODAY BUT WILL RETURN TOMORROW TO RECEIVE HER EMAIL. BRIEFLY DISCUSSED TRANSPORTING PT.TO [place] IF THAT IS THE FACILITY THEY CHOOSE. ESTEBAN SAID HE WAS LOOKING INTO MEDICAL TRANSPORTATION TO GET HIS DAD TO [place]. HE KNOWS IT COULD COST SEVERAL THOUSANDS OF DOLLARS BUT THAT IS THE ROUTE THEY MAY HAVE TO TAKE. HE SAID HE IS ACTUALLY HERE IN [place].AT THIS TIME,LOOKING INTO HIS DADS FIANANCIAL INFORMATION. TOLD HIM SKY WOULD MOST LIKELY CALL HIM TOMORROW. HE WANTED TO THANKS US FOR BEING SO HELPFUL TO HIM.
--- NOTE | 2019-06-27 17:41 | NUR ---
PT REMAINED CONFUSED DURING SHIFT. ON ROOM AIR. IV INTACT. MEDS CRUSHED AND GIVEN ORDERED. PT WORKED WITH THERAPY. UP TO CHAIR FOR MEALS. FEEDER AT MEALS. HOURLY ROUNDING COMPLETED. FALL RISK PRECAUTIONS IN PLACE. WILL CONTINUE TO MONITOR.
[2019-06-27 20:00] VITALS: BP 130/81
[2019-06-28 00:03] VITALS: BP 103/72
--- NOTE | 2019-06-28 04:24 | NUR ---
ASSUMED CARE OF PT AFTER REPORT AT 1930. PT A&OX1. ONLY ORIENTED TO SELF. CONFUSED. VSS. PHYSICAL ASSESSMENT COMPLETED AND CHARTED. PT ON RA. PT ON MEDSURG STATUS. PT WITH EPISODES OF INCTINENT BOWEL & BLADDER. FALL PRECAUTIONS IN PLACE. CALL LIGHT WITHIN REACH.
[2019-06-28 11:47] VITALS: BP 142/80
--- NOTE | 2019-06-28 12:47 | NUR ---
TB TEST GIVEN POSTERIOR LEFT FOREARM.
--- NOTE | 2019-06-28 15:53 | NUR ---
SOPHIE called [facility] and spoke with Debbi and faxed referral information. SOPHIE communicated with Dr Carey that the [facility] requested TB test and the forms to be signed; SW to assist in providing needed information to [facility]. SOPHIE called other possible referral facilities for the interim: [facility] not in today, [facility] not in network. Continued barrier of no payer source. SOPHIE called pt son Felton who is now in [place] at pt [place]ull[place] locating pt financial information. Pt son said that he has an Elder Law criminal attorney, has found 2018 tax return and also spoke with pt account financial manager who is to follow up with pt son with more information. Pt said he is working on receiving pt bank account information. Pt son said that he has been told pt would not qualify for Medicaid according to pt account financial manager. SW to continue to follow to assist with safe dc planning as soon as possible.
--- NOTE | 2019-06-28 18:25 | NUR ---
CONTINUE Q 2 HOUR TURN. PT INCONTINENT HAD SEVERAL SOAKED CHUXS. PT LARGELY NONINTERACTIVE TODAY. DR MONTES REPORTS THIS IA A DECLINE FROM PREVIOUS STATUS. PT REMAIN DNR.
[2019-06-29] VITALS: BP 143/93
--- NOTE | 2019-06-29 07:38 | NUR ---
ASSUMED CARE OF PT AFTER REPORT AT 1930. PT A&OX1. ONLY ORIENTED TO HIMSELF. VSS. PHYSICAL ASSESSMENT COMPLETED AND CHARTED. PT ON RA. PT ON MEDSURG STATUS. PT WITH EPISODES INCONTINENT BOWEL & BLADDER. PT TURNED TO SIDES. FALL PRECAUTIONS IN PLACE.
[2019-06-29 08:00] VITALS: BP 125/83
--- NOTE | 2019-06-29 10:00 | NUR ---
SW faxed updated current med list and form for [place] [facility] to [facility]. SW to continue to follow to check on status of referral and assist with safe dc planning for placement as soon as possible.
[2019-06-29 16:00] VITALS: BP 130/76
[2019-06-29 19:40] VITALS: BP 101/51
[2019-06-29 19:54] VITALS: BP 133/87
[2019-06-30 00:04] VITALS: BP 132/86
--- NOTE | 2019-06-30 05:20 | NUR ---
PATIENT REMAINS ORIENTED TO SELF ONLY. PATIENT INCONTINENT OF BOWEL AND BLADDER. LORELEI CARE PROVIDED WITH INCONTINENCE CHECKS. REPOSITIONED Q2H. PATIENT DOES NOT APPEAR TO BE IN PAIN THIS SHIFT. CALL LIGHT WITHIN REACH
--- NOTE | 2019-06-30 07:15 | NUR ---
CHANGE OF SHIFT BEDSIDE REPORT GIVEN PATIENT SEEN AT BEDSIDE, IN BED RESTING ASSUMED PATIENT CARE
[2019-06-30 07:30] VITALS: BP 135/86
[2019-06-30 13:05] LABS: HEMATOCRIT 37.3 % (42.0-52.0); HEMOGLOBIN 12.8 gm/dL (14.0-18.0); MCH 31.6 pg (26.0-34.0); MCHC 34.3 g/dL (28.0-37.0); MCV 92.3 fL (80.0-100.0); MPV 6.8 fl. (7.2-11.1); RBC 4.04 mil/uL (4.50-6.00); RDW-CV 12.9 % (10.5-14.5); WBC 9.9 thou/uL (4.0-11.0)
[2019-06-30 13:21] LABS: ALBUMIN 2.5 g/dL (3.4-5.0); CALCIUM 7.9 mg/dL (8.5-10.1); CREATININE 0.5 mg/dL (0.6-1.3); POTASSIUM 3.7 mmol/L (3.5-5.1); TOTAL BILIRUBIN 0.5 mg/dL (<0.1-1.0); TOTAL PROTEIN 5.6 g/dL (6.4-8.2)
[2019-06-30 16:00] VITALS: BP 87/60
[2019-06-30 20:13] VITALS: BP 105/70
[2019-07-01 00:06] VITALS: BP 104/73
[2019-07-01 05:01] LABS: ALBUMIN 2.5 g/dL (3.4-5.0); CALCIUM 8.7 mg/dL (8.5-10.1); CREATININE 0.6 mg/dL (0.6-1.3); MAGNESIUM 2.6 mg/dL (1.8-2.4); POTASSIUM 3.3 mmol/L (3.5-5.1); TOTAL BILIRUBIN 0.5 mg/dL (<0.1-1.0); TOTAL PROTEIN 5.6 g/dL (6.4-8.2)
[2019-07-01 08:00] VITALS: BP 108/79
--- NOTE | 2019-07-01 12:09 | NUR ---
ASSUMED CARE OF PATIENT THIS AM AT 0730. PATIENT IS DROWSY, WITH SLOW VERBAL RESPONSES. HE DENIES PAIN THIS AM. PATIENT TURNED Q 2 HR AND ASSISTED WITH ADLS THROUGHOUT THE DAY. WOUND CARE PROVIDED BY WOUND CARE NURSE. PATIENT WAS ABLE TO TAKE HIS MEDICATIONS WITH PUDDING. PO LIQUIDS OFFERED Q 1 HR. PATIENT REORIENTED TO PERSON PLACE AND TIME FREQUENTLY. WILL CONTINUE PATIENT SAFETY AND CARE.
--- NOTE | 2019-07-01 12:14 | NUR ---
WOUND NURSE: PATIENT SEEN FOR STAGE 2 PRESSURE INJURY ON THE COCCYX MEASURING 2.0 X 2.0 X 0.1 CM. CONTAINS CREAM COLORED ALONG WITH RED, NONGRANULATING TISSUE IN THE WOUND BED. THERE IS A SMALL AMOUNT OF SEROUSANGUINOUS DRAINAGE NOTED FROM THE WOUND. THERE IS NO ODOR, REDNESS, WARMTH, OR INDURATION ASSOCIATED WITH THE WOUND. CLEANSED WITH SOAP AND WATER, RINSED WITH WATER, THEN PATTED DRY. APPLIED SKIN PREP TO INTACT PERIWOUND TISSUE, THEN APPLIED AQUACEL AG UNDER BORDERED FOAM DRESSING. SKIN TEAR ON THE LEFT FOREARM MEASURES 2.0 X 1.0 X 0.1 CM. CONTAINS RED, NONGRANULATING TISSUE IN THE WOUND BED AND HS SCANT AMOUNT OF SEROUSANGUINOUS DRAINAGE NOTED. THERE IS NO ASSOCIATED PAIN, REDNESS, ODOR, OR INDURATION. PATIENT'S SKIN IS SEVERELY ATROPHIED. CLEANSED WITH SOAP AND WATER, RINSED WITH WATER, THEN PATTED DRY. APPLIED OIL EMULSION GAUZE UNDER BORDERED FOAM DRESSING. PATIENT IS NOT TEACHEABLE.
--- NOTE | 2019-07-01 14:13 | NUR ---
SW spoke with pt son in regards to dc planning and doctor's recommendation of hospice house. Pt son expressed that he did not realize pt was in need of hospice; SOPHIE discussed with Dr Carey who spoke with pt son in more detail about medical prognosis and dc planning as well. Pt son to determine if the family wants pt to go to [place] if pt is not going to live for an extended period of time. Pt son said he would be open to facilities in [facility]. SW [facility]. SW to continue to follow to assist with safe dc planning.
[2019-07-01] MEDS ORDERED: RISPERIDONE 1 MG1 MG PO (15:19)
[2019-07-01] MEDS ORDERED: FLOMAX0.4 MG PO (15:19)
[2019-07-01] MEDS ORDERED: ARICEPT10 M1 PO (15:19)
[2019-07-01] MEDS ORDERED: NAMENDA 5 MG TAB5 M1 PO (15:19)
[2019-07-01] MEDS ORDERED: CLARITIN10 M2 PO (15:19)
[2019-07-01] MEDS ORDERED: BUSPIRONE HCL5 MG PO (15:19)
[2019-07-01 16:16] VITALS: BP 118/76
[2019-07-01 16:27] VITALS: BP 126/79
[2019-07-01 20:00] VITALS: BP 131/83
[2019-07-01 23:00] VITALS: BP 100/74
--- NOTE | 2019-07-02 04:13 | NUR ---
ASSUMED CARE OF PT AT 1900. PT IS CONFUSED. VSS. PERDeepakLA. NO SIGNS OR SYMPTOMS OF PAIN. PT IS A Q2 TURN. PT IS SLEEPING COMFORTABLY IN BED. RESPIRATIONS ARE EVEN AND NONLABORED. WILL CONTINUE TO MONITOR PT.
[2019-07-02 08:00] VITALS: BP 110/69
--- NOTE | 2019-07-02 11:28 | NUR ---
DR. MONTES SPOKE WITH SON AND SON OK TO PROCEED WITH HOSPICE AT HOME WITH [facility]. THEY PLAN TO PAY FOR / NURSING CARE. PATIENT WILL ALSO NEED A COMMODE AND HOSPITAL BED. REFERRAL CALLED TO [facility] [phone]. ALONSO RN RETURNED CALL. FAMILY HAD CALLED THEM ALREADY. PLAN TO SEND RN OUT FOR ADMISSION ASSESSMENT SOON. [facility] IS NOTIFYING THEIR CM ABOUT SETTING UP EQUIPMENT AND NURSING CARE. REQUESTED INFORMATION FAXED TO [phone].
[2019-07-02 16:25] VITALS: BP 110/77
[2019-07-02 16:35] VITALS: BP 110/77
--- NOTE | 2019-07-02 16:42 | NUR ---
PATIENT RESTING IN BED. PATIENT IS UP WITH MAX ASSIST. PATIENT IS CONFUSED. PATIENT HAS BEEN COOPERATIVE THROUGHOUT DAY. PATIENT IS INCONTINENT OF BOWEL AND BLADDER. PATIENT DENIES ANY NEEDS AT THIS TIME. BED ALARM ON. CALL LIGHT WITHIN REACH.
[2019-07-02 20:00] VITALS: BP 103/66
[2019-07-02 23:00] VITALS: BP 128/67
--- NOTE | 2019-07-03 04:22 | NUR ---
ASSUMED PT CARE AT APPROX 1930. PT IS AWAKE AND CONFUSED, BUT IS ABLE TO FOLLOW SOME SIMPLE INSTRUCTIONS. ASSESSMENT DONE AND CHARTED. NO ACUTE CHANGES OVERNIGHT. CALL LIGHT WITHIN REACH. HIGH FALL PRECAUTIONS IN PLACE. PT IS CLOSELY MONITORED.
[2019-07-03 07:40] VITALS: BP 121/77
[2019-07-03 16:52] VITALS: BP 110/81
--- NOTE | 2019-07-03 17:28 | NUR ---
PATIENT RESTING IN BED. PATIENT REPOSITIONED WHILE IN BED. PATIENT IS UP WITH MAX ASSIST. PATIENT IS INCONTINENT OF BOWEL AND BLADDER. PATIENT REQUIRES ASSISTANCE WITH EATING, FAIR TO POOR APPETITE TODAY. PATIENT IS CONFUSED AND COOPERATIVE. BED ALARM IS ON. REPORT GIVEN TO ELIZA NEAL WHO IS TAKING OVER CARE AT THIS TIME.
[2019-07-03 20:00] VITALS: BP 115/70
[2019-07-04 00:30] VITALS: BP 106/76
--- NOTE | 2019-07-04 05:13 | NUR ---
ASSUMED PT CARE AT APPROX 1930. PT IS AWAKE BUT CONFUSED. PT IS NOT IN ANY DISTRESS. NO ACUTE CHANGES OVERNIGHT. PT REMAINED INCONTINENT-POSITION CHANGES DONE AND PT IS KEPT CLEAN AND DRY. HIGH FALL PRECAUTIONS IN PLACE. CALL LIGHT WITHIN REACH. PT IS CLOSELY MONITORED.
[2019-07-04 08:10] VITALS: BP 102/72
--- NOTE | 2019-07-04 10:27 | NUR ---
SOPHIE received communication from [facility] [employer] on Saturday 07/01 regarding pt dc plan and pt son choice for [facility] and 22/09 caregiver at pt home. SOPHIE advised to send referral and orders to [facility] as they provide needed DME and support/resources and a nurse to meet pt/family at pt home at dc. SOPHIE followed up with Dr Carey this morning and discussed the plan as Dr Carey in agreement with dc to home with hospice and caregiver as needed to safely care for pt. SOPHIE then called [facility] who has everything they needed to be able to admit pt and provide services except that the pt son had informed them that he was making final decision of pt to dc home in [place] or if they still wanted to be able to take pt to [place]. [facility] needs updated dc summary/orders and final confirmation of dc with coordination of timing with hospital and pt family. SOPHIE called pt son Felton who did not answer to SOPHIE left a message requesting call back to discuss plan for today. SOPHIE called pt dtr in law Rachel who explained that they were very upset to be told about pt only having possibly 2 weeks to live and they were not believing this news. Pt dtr in law to call pt son and then call SW back with final decision and to discuss dc plan for today.
[2019-07-04 16:09] VITALS: BP 126/79
[2019-07-04 16:44] VITALS: BP 128/83
--- NOTE | 2019-07-04 18:45 | NUR ---
PATIENT MORE ALERT AND TALKATIVE TODAY ALTHOUGH ALOT OF WHAT PATIENT WAS SAYING DID NOT MAKE SENSE BUT WAS ABLE TO UNDERSTAND A FEW SIMPLE SENTENCES. PATIENT TOOK PILLS CRUSHED IN PUDDING WITHOUT DIFFICULTY AND WAS ASSISTED WITH FEEDING MEALS, PATIENT HAS POOR APPETITE. TURNED Q2. PRAFO BOOT IN PLACE TO RIGHT HEEL. DRESSINGS TO COCCYX, RIGHT AND LEFT FOREARM CHANGED PER PROTOCOL. IV DC'D THIS EVENING PATIENT IS DISCHARGING TO HOSPICE HOUSE AT [facility]. PATIENTS SON HERE THIS EVENING, UPDATE GIVEN. PATIENT TO DC VIA EMS BETWEEN [phone].
== END 2019-07-04 19:22 | disposition hospice, home (50) | DRG 640 ==
LOC: M.ERS 13:07 → M.TBA-ER 15:21 → M.2W 15:21 → M.3W 05-27 14:52 → M.2W 05-28 19:54
PROVIDERS: Internal Medicine; Personal Emergency Response Attendant; Psychiatry & Neurology Neurology; Psychiatry & Neurology Neuromuscular Medicine; ADMIT Family Medicine
DX: E87.1 Hypo-osmolality and hyponatremia (principal); G93.41 Metabolic encephalopathy; F03.91 Unspecified dementia, unspecified severity, with behavioral disturbance; E44.0 Moderate protein-calorie malnutrition; Z68.1 Body mass index [BMI] 19.9 or less, adult; R65.10 Systemic inflammatory response syndrome (SIRS) of non-infectious origin without acute organ dysfunction; D64.9 Anemia, unspecified; E53.8 Deficiency of other specified B group vitamins; E83.51 Hypocalcemia; I95.9 Hypotension, unspecified; M47.896 Other spondylosis, lumbar region; E86.1 Hypovolemia; Z66 Do not resuscitate